=== PATIENT | female | born 1965 | race Caucasian/White ===

== ENCOUNTER 2024-05-28 10:27 | Day surgery (SDC) | payer BC, SELFPAY ==
[2024-05-27 10:25] VITALS: BMI 21.0
[2024-05-28 10:46] VITALS: BP 149/72; PULSE 104; RESP 16; TEMP 36.6; O2SAT 100
[2024-05-28] MEDS: LACTATED RINGERS 1000ML 1,000 ML 50 ML IV (10:57)
--- NOTE | 2024-05-28 11:53 | EXP.ANES.CKL ---
[facility] Disclaimer: The information contained in this section may have been updated after the patient was seen, as this information can be updated by other users. Medical History Kidney stone Asthma Menopause Surgical History History of foot surgery H/O: hysterectomy History of cholecystectomy Family History Other Cancer Coronary artery disease Social History Smoking Status: Never smoker alcohol intake: current alcohol intake frequency: holidays/special occasions only substance use type: denies use current occupational status: employed Travel in the last 8 weeks: None caffeine: Yes Have you lived/traveled outside [place] in past 30 days?: No Contact w/someone who lives/traveled outside US past 30 days?: No Exposure to someone with infectious disease in past 14 days?: No Do you have a fever (greater than 100.4 F or 38 C)?: No Have you tested positive for COVID-19: Yes Exposed to someone with COVID-19 in past 14 days?: No Do you have a sore throat?: No Do you have a cough?: No Do you have any weakness?: No Are you experiencing any nausea/vomitting?: No Do you have any diarrhea?: No Are you experiencing any unusual bleeding?: No Do you have any muscle aches/pain?: No Do you have any abdominal pain?: No Are you experiencing loss of taste or smell?: No [facility] Anesthesia Checklist Patient Identification Patient Identification: Arm Band Structural Data Admitted From: Home Planned Operative Procedure/s: Colonoscopy Consent for Planned Operative Procedure(s) Verified: Yes Verified Documents: Surgical Consent and History and Physical NPO Status Verified Time NPO: 00:00 Additional verifications Anesthesia Reactions: No Airway Assessment Mallampati Score:: Class II C-Spine Mobility Assessed: Yes TMJ Mobility Assessed: Yes Dentition: Good Dentition Neurological Assessment Level of Consciousness: Awake, Alert and Appropriate Anesthesia Plan Anesthesia Risk discussed: Yes Anesthesia Plan: Verified ASA Class: II Anesthesia Type: MAC
[2024-05-28 12:24] VITALS: O2SAT 99
--- NOTE | 2024-05-28 12:31 | HMH.PROCNOTE ---
[facility] Procedure Note Date: 05/28/24 Time: 12:55 Procedure Note:: Colonoscopy Procedure Report: Colonoscopy with snare cautery, coagulation, cold snare snare polypectomy and Endo Clip placement Endoscopist: Ramses House II, MD Referring physician: Larry Ribera MD Date of Procedure: May 28, 2024 Equipment: Olympus 190 variable stiffness pediatric colonoscope Sedation: MAC sedation Indication: Mrs. Ortega is a 59-year-old female here for diagnostic colonoscopy secondary to bright red rectal bleeding. She states that this began a couple of years ago with some pink water or spot of blood on the toilet tissue. Now she has blood that sometimes drips into the commode but also on the toilet tissue. The patient had seen her silk trimmer (Dr. Jose Chapman) last year because of some vaginal pain. He did a Hemoccult at that time that was negative. He repeated this again this year and it was Hemoccult positive. The patient also notably has mucus seepage not only with her stools but sometimes without a bowel movement which is whitish clear or sometimes with blood or bile. This can sometimes just seep out. She does have some bowel frequency. She has never had a colonoscopy. She reports no abdominal pain or weight loss. She does state that her paternal aunt had gastric and colon cancer. Procedure: Prior to the procedure, a history and physical exam was performed, and patient's medications and allergies were reviewed. The risks, benefits and alternatives of the sedation and procedure were discussed with the patient. All questions were answered and informed consent was obtained. The patient was brought to the procedure room. Patient identification and proposed procedure were verified by the physician and the nurse. The patient was placed in a left lateral decubitus position and the scope was passed under direct vision. Throughout the procedure, the patient's blood pressure, pulse, and oxygen saturations were monitored continuously. The colonoscopy was accomplished without difficulty. The patient tolerated the procedure well. Findings: On digital rectal examination there was normal rectal tone. There were no external hemorrhoids. The colonoscope was introduced through the anal canal to the rectum and advanced to the cecum. The ileocecal valve and appendiceal orifice were identified. The scope was advanced a short distance into the ileum which appeared grossly normal. The scope was then withdrawn into the colon. There were 2 diminutive polyps in the ascending colon (3 and 3 mm) and 1 diminutive polyp in the sigmoid colon (4 mm) which were removed via cold snare polypectomy. The remainder of the cecum, ascending, transverse, descending, sigmoid were normal. Within the rectum there was a 15 to 16 mm sessile lobulated polyp (probable villous adenoma) that was removed via snare cautery. After removal, the polypectomy site was coagulated at the margin using the snare tip with soft coagulation. Lastly, the polypectomy site was closed using 2 endoclips. Upon retroflexion within the rectum there were grade 1-2 internal hemorrhoids.The preparation was excellent throughout with [place] Preparation Score of 9. The cecal time was 14 minutes. Impression: 1. Larger 15 to 16 mm lobulated rectal polyp (rule out villous or tubulovillous adenoma) 2. 3 additional diminutive colonic polyps 3. Grade 1-2 internal hemorrhoids Plan: I will follow-up the polyp histology and recommend repeat surveillance colonoscopy in 3 years with sigmoidoscopy in 3-6 months. Adenomatous polyps with villous histology do often excrete serious fluid and is likely the etiology of her blood and mucus. I would encourage psyllium bulking fiber supplementation on a maintenance basis.
[2024-05-28 12:58] VITALS: BP 122/77; PULSE 91; RESP 15; TEMP 36.3; O2SAT 99
[2024-05-28 13:08] VITALS: BP 129/74; PULSE 89; RESP 16; O2SAT 97
[2024-05-28 13:18] VITALS: BP 124/71; PULSE 82; RESP 16; O2SAT 96
[2024-05-28 13:28] VITALS: BP 117/78; PULSE 82; RESP 16; TEMP 36.6; O2SAT 99
== END 2024-05-28 13:39 | disposition home or self-care (01) ==
PROVIDERS: PCP Internal Medicine; Visit Provider Internal Medicine Gastroenterology
PROC: 0DJD8ZZ Inspection of Lower Intestinal Tract, Via Natural or Artificial Opening Endoscopic (ICD-10-PCS; CPT 45378; principal; 2024-05-28 12:00)
DX: D12.7 Benign neoplasm of rectosigmoid junction (principal); K63.5 Polyp of colon; K64.8 Other hemorrhoids; K62.5 Hemorrhage of anus and rectum
CPT/HCPCS: 45385; J7120

== ENCOUNTER 2024-11-03 10:31 | Day surgery (SDC) | payer BC, SELFPAY ==
[2024-10-29 11:08] VITALS: BMI 21.2
[2024-11-03] MEDS: LACTATED RINGERS 1000ML 1,000 ML 50 ML IV (11:28)
[2024-11-03 11:30] VITALS: BP 134/63; PULSE 83; RESP 18; TEMP 36.6; O2SAT 99
--- NOTE | 2024-11-03 12:10 | EXP.HP ---
History of Present Illness *Admission Date: 11/03/24 *Reason for visit:: Large rectal tubulovillous adenoma *History of present illness: Mrs. Ortega is a 59-year-old female who is here for surveillance sigmoidoscopy secondary to a large rectal tubulovillous adenoma. The examination is deemed medically necessary for surveillance sigmoidoscopy. The patient has been seen, interviewed and examined prior to the procedure by both myself and the anesthesia provider. [facility] Disclaimer: The information contained in this section may have been updated after the patient was seen, as this information can be updated by other users. Medical History (Updated 11/03/24 @ 12:12 by Ramses House II, MD) Kidney stone Asthma Menopause Surgical History History of foot surgery H/O: hysterectomy History of cholecystectomy Family History Other Cancer Coronary artery disease Social History Smoking Status: Never smoker alcohol intake: never substance use type: denies use current occupational status: employed Travel in the last 8 weeks?: None caffeine: Yes Have you lived/traveled outside [place] in past 30 days?: No Contact w/someone who lives/traveled outside [place] past 30 days?: No Exposure to someone with infectious disease in past 14 days?: No Do you have a fever (greater than 100.4 F or 38 C)?: No Have you tested positive for COVID-19?: No Exposed to someone with COVID-19 in past 14 days?: No Do you have a sore throat?: No Do you have a cough?: No Do you have any weakness?: No Are you experiencing any nausea/vomitting?: No Do you have any diarrhea?: No Are you experiencing any unusual bleeding?: No Do you have any muscle aches/pain?: No Do you have any abdominal pain?: No Are you experiencing loss of taste or smell?: No Review of Systems Review of Systems Review of systems (narrative): Negative *Cardiovascular Comments: Negative *Gastrointestinal Comments: Negative *Genitourinary Comments: Negative *Musculoskeletal Comments: Negative *Neurologic Comments: Negative Meds Home Medications and Allergies Home Medications ?Medication ?Instructions ?Recorded ?Confirmed ?Type estradiol 0.05 mg/24 hr semiweekly 1 patch transdermal WEEKLY 05/21/24 11/03/24 History transdermal patch (Daniella) multivitamin (Multiple Vitamins 1 tab PO DAILY 05/21/24 11/03/24 History tablet) New Prescriptions to Start Prescriptions: Allergies Allergy/AdvReac Type Severity Reaction Status Date / Time Sulfa (Sulfonamide Allergy Hives Verified 10/29/24 11:05 Antibiotics) Exam Data for Last 24 hours Vital signs and Labs for Last 24 Hours: Temp Pulse Resp BP Pulse Ox O2 Del Method 97.9 F 83 18 134/63 99 Room Air 11/03/24 11:30 11/03/24 11:30 11/03/24 11:30 11/03/24 11:30 11/03/24 11:30 11/03/24 11:30 *Routine HEENT Exam Head: Present normocephalic Eye: Present EOMI and PERRL ENT: Present mucous membranes moist *Routine Neck Exam Neck: Present supple *Routine Respiratory Exam Respiratory: Present CTA bilaterally *Routine Cardiovascular Exam Cardiovascular: Present RRR *Routine Abdominal Exam Abdominal: Present soft and normoactive bowel sounds; Absent tenderness *Routine Rectal Exam Rectal:: deferred *Routine Genitalia Exam Genitalia:: deferred *Routine Extremities Exam Extremities: Absent cyanosis, clubbing or edema *Routine Skin Exam Skin: Present warm; Absent rash *Routine Neurological Exam Neurological: Present alert and oriented X3 Assessment and Plan *Assessment and plan (1) Tubulovillous adenoma of rectum: Status: Acute Category: Medical Code(s): D12.8 - Benign neoplasm of rectum Plan A/P: 1. Large tubulovillous adenoma of rectum removed in May 2024 is the preprocedural diagnosis. The patient will be anesthetized/sedated using MAC sedation. The patient has been seen and examined. Cardiac and lung assessment prior to the examination is stable. Proceed with planned surveillance of rectum with sigmoidoscopy.
--- NOTE | 2024-11-03 12:11 | P.PNANES_ITS ---
[facility] Disclaimer: The information contained in this section may have been updated after the patient was seen, as this information can be updated by other users. Medical History Kidney stone Asthma Menopause Surgical History History of foot surgery H/O: hysterectomy History of cholecystectomy Family History Other Cancer Coronary artery disease Social History Smoking Status: Never smoker alcohol intake: never substance use type: denies use current occupational status: employed Travel in the last 8 weeks?: None caffeine: Yes Have you lived/traveled outside [place] in past 30 days?: No Contact w/someone who lives/traveled outside [place] past 30 days?: No Exposure to someone with infectious disease in past 14 days?: No Do you have a fever (greater than 100.4 F or 38 C)?: No Have you tested positive for COVID-19?: No Exposed to someone with COVID-19 in past 14 days?: No Do you have a sore throat?: No Do you have a cough?: No Do you have any weakness?: No Are you experiencing any nausea/vomitting?: No Do you have any diarrhea?: No Are you experiencing any unusual bleeding?: No Do you have any muscle aches/pain?: No Do you have any abdominal pain?: No Are you experiencing loss of taste or smell?: No [facility] Anesthesia Checklist Patient Identification Patient Identification: Arm Band and Verbal (Name & ) Structural Data Admitted From: Home Planned Operative Procedure/s: sigmoidscopy Consent for Planned Operative Procedure(s) Verified: Yes Verified Documents: Surgical Consent and History and Physical NPO Status Verified Time NPO: 00:00 Additional verifications Anesthesia Reactions: No Previous Colonoscopy: Yes Airway Assessment Mallampati Score:: Class II Dentition: Good Dentition Neurological Assessment Level of Consciousness: Awake, Alert and Appropriate Hx Seizures: No Anesthesia Plan Anesthesia Risk discussed: Yes Anesthesia Plan: Verified ASA Class: II Anesthesia Type: MAC
--- NOTE | 2024-11-03 12:21 | HMH.PROCNOTE ---
[facility] Procedure Note Date: 11/03/24 Time: 12:30 Procedure Note:: Flexible Sigmoidoscopy Procedure Report: Sigmoidoscopy with cold biopsies Endoscopist: Ramess House II, MD Referring physician: Larry Ribera MD Date of Procedure: November 03, 2024 Equipment: Olympus 180 variable stiffness pediatric colonoscope Sedation: MAC sedation Indication: Mrs. Ortega is a 59-year-old female who had a diagnostic colonoscopy in May 2024 due to some rectal bleeding and mucus. She was found to have a larger 16 mm lobulated rectal polyp which was a tubulovillous adenoma which was removed. She did have3 additional diminutive polyps (diminutive tubular adenomas x 3) which were also removed. The patient did have resolution of her bleeding and mucus seepage but just recently had some recurrence of mucus seepage. She reports no abdominal pain, weight loss or rectal bleeding. Procedure: Prior to the procedure, a history and physical exam was performed, and patient's medications and allergies were reviewed. The risks, benefits and alternatives of the sedation and procedure were discussed with the patient. All questions were answered and informed consent was obtained. The patient was brought to the procedure room. Patient identification and proposed procedure were verified by the physician and the nurse. The patient was placed in a left lateral decubitus position and the scope was passed under direct vision. Throughout the procedure, the patient's blood pressure, pulse, and oxygen saturations were monitored continuously. The colonoscopy was accomplished without difficulty. The patient tolerated the procedure well. Findings: On digital rectal examination, there was normal rectal tone and no external hemorrhoids. The scope was then inserted through the anal canal into the rectum and advanced to 30 cm. Upon withdrawal, the distal sigmoid, rectosigmoid and rectum were grossly normal. There was a small white fibrotic scar at the rectal polypectomy site. 2 cold biopsies were obtained adjacent to the site to ensure no residual adenomatous tissue and NBI imaging was utilized and there was no residual adenomatous tissue by advanced imaging. Upon retroflexion within the rectum, there were grade 1-2 internal hemorrhoids. Impression: 1. No residual rectal polyp Plan: I will follow-up the biopsies. I would recommend repeat surveillance colonoscopy again in 3 years.
[2024-11-03 12:33] VITALS: BP 92/53; PULSE 83; RESP 16; TEMP 36.2; O2SAT 99
[2024-11-03 12:43] VITALS: BP 96/57; PULSE 79; RESP 18; O2SAT 100
[2024-11-03 12:53] VITALS: BP 101/55; PULSE 74; RESP 18; O2SAT 100
[2024-11-03 13:03] VITALS: BP 114/67; PULSE 84; RESP 16; TEMP 36.2; O2SAT 98
== END 2024-11-03 13:03 | disposition home or self-care (01) ==
PROVIDERS: PCP Internal Medicine; Visit Provider Internal Medicine Gastroenterology
PROC: 0DJD8ZZ Inspection of Lower Intestinal Tract, Via Natural or Artificial Opening Endoscopic (ICD-10-PCS; CPT 45330; principal; 2024-11-03 12:00)
DX: D12.8 Benign neoplasm of rectum (principal); Z86.0101 Personal history of adenomatous and serrated colon polyps; J45.909 Unspecified asthma, uncomplicated; Z88.2 Allergy status to sulfonamides
CPT/HCPCS: 45331; J2003; J2704; J7120